=== PATIENT | male | born 1970 | race Caucasian/White ===

== ENCOUNTER 2019-06-14 11:11 | Day surgery (SDC) | payer MEDICAID ==
[2019-06-14] VITALS (13 sets, daily range): BP systolic 116–146; BP diastolic 77–91
[~2019-06-14] VITALS: Ht 182.9 cm; Wt 77.8 kg
[~2019-06-14 11:11] MED LIST: Cefazolin 2GM/100ML NS IVPB 100 ML IV ONE; IBUP-1984 PO; MESSAGE TO NURSING IV NR; famotidine 20mg tablet PO ONE; ringers solution, lacted 1,000 ML IV SCH
[2019-06-14] MEDS ORDERED: BUPIVAcaine/PF 2.5 mg/ml (0.25%) 30ml vial ONE (11:34)
[2019-06-14] MEDS ORDERED: BUPIVACAINE liposomal/PF 13.3 MG/ML vial IM ONE (11:35)
[2019-06-14] MEDS ORDERED: NO HOME MEDS PO (11:39)
[2019-06-14] MEDS ORDERED: clindamycin 600mg/D5W 50ml 50 ML IV ONE (11:40)
[2019-06-14 12:05] LABS: ISTAT IONIZED CALCIUM 1.15 mmol/L (1.03-1.32)
[2019-06-14] MEDS ORDERED: ringers solution, lacted 1,000 ML IV SCH (12:11)
[2019-06-14] MEDS ORDERED: morphine 4 MG/ML inj SYRINge IV PRN ×2 (12:15)
[2019-06-14] MEDS ORDERED: proCHLORperazine 10 MG/2 ml inj IV PRN (12:15)
[2019-06-14] MEDS ORDERED: ondansetron/PF 4mg/2ml inj IV PRN (12:15)
[2019-06-14] MEDS ORDERED: meperidine/PF 25mg/ml syringe IV PRN ×2 (12:15)
[2019-06-14] MEDS ORDERED: fentaNYL /PF 50mcg/ml 5ml ampule ONE (12:20)
[2019-06-14] MEDS ORDERED: midazolam 2 mg/2 ml injection ONE (12:20)
[2019-06-14] MEDS ORDERED: ondansetron/PF 4mg/2ml inj ONE ×2 (12:27→13:00)
[2019-06-14] MEDS ORDERED: dexamethasone sod phosphate 4mg/ml inj. ONE (12:27)
[2019-06-14] MEDS ORDERED: LIDOcaine 2% (20mg/ml) 5ml vial ONE (12:27)
[2019-06-14] MEDS ORDERED: propofol inj 20 ML IV ONE (12:27)
[2019-06-14] MEDS ORDERED: clindamycin phosphate 150mg/ml inj. ONE (12:29)
--- NOTE | 2019-06-14 13:18 | NUR ---
Received from OR via , accompanied by Anesthesiologist LENA and report given by Anesthesiolgist. ASLEEP LMA IN PLACE RESP DEEP. NO CO PAIN, DSG DI, ABD SOFT.
--- NOTE | 2019-06-14 13:28 | NUR ---
MORE AWAKE LMA REMOVED BY DR PAREDES, SPONT DEEP RESP.
[2019-06-14] MEDS ORDERED: HYDROcodone/acetaminophen 10/325mg tab PO ONE (14:20)
[2019-06-14] MEDS: meperidine/PF 25mg/ml syringe IV PRN ×2 (14:29→14:51)
--- NOTE | 2019-06-14 15:28 | NUR ---
AWAKE VS WNL, ABD SOFT DSG DI, PAIN DECREASED AFTER MEDS. DISCH INST AND PAIN MED SCRIPT GIVEN TO PT AND MOTHER AND UNDERSTOOD. VOIDED QS CLEAR URINE. HOME WITH GIRLFRIEND.
== END 2019-06-14 15:28 | disposition home or self-care (01) ==
LOC: PAS 11:11
PROVIDERS: ATTEND Surgery
DX: K40.90 Unilateral inguinal hernia, without obstruction or gangrene, not specified as recurrent (principal); Z87.891 Personal history of nicotine dependence; Z88.0 Allergy status to penicillin; Z86.14 Personal history of Methicillin resistant Staphylococcus aureus infection; Z79.899 Other long term (current) drug therapy
CPT/HCPCS: 49505; 80047; 93005; C1781; C9290; J1100; J2001; J2175; J2250; J2405; J2704; J3010; J3490; A4215; A4618; A6449; A7000; J0690; J7120

== ENCOUNTER 2023-10-05 20:34 | Emergency (ER) | payer MEDICAID ==
[~2023-10-05] VITALS: Ht 182.9 cm; Wt 77.4 kg
[~2023-10-05 20:34] MED LIST changes: -Cefazolin 2GM/100ML NS IVPB 100 ML IV ONE; -IBUP-1984 PO; -MESSAGE TO NURSING IV NR; +NO HOME MEDS PO; -famotidine 20mg tablet PO ONE; -ringers solution, lacted 1,000 ML IV SCH
[2023-10-05 20:37] VITALS: BP 108/64; PULSE 107; TEMP 98.1; O2SAT 95
[2023-10-05 21:08] VITALS: RESP 18
[2023-10-05] MEDS ORDERED: CefTRIAXone 1000mg IM Kit (w/lidocaine diluent) IM ONE (21:15)
[2023-10-05] MEDS ORDERED: IBUP-1985 PO (21:27)
[2023-10-05] MEDS ORDERED: AZIT250T83 PO (21:27)
[2023-10-05] MEDS: ibuprofen tablet 400 MG TABLET PO ONE (21:27)
[2023-10-05] MEDS ORDERED: LOPE2CAP PO (21:27)
[2023-10-05] MEDS: azithromycin 250mg tablet PO ONE (21:27)
[2023-10-05] MEDS: loperamide 2mg capsule PO ONE (21:27)
[2023-10-06] MEDS ORDERED: BUPR1FIL17 SL (11:30)
== END 2023-10-05 21:40 | disposition home or self-care (01) ==
LOC: ER 20:35
DX: J18.9 Pneumonia, unspecified organism (principal); R19.7 Diarrhea, unspecified; R53.1 Weakness; R11.0 Nausea; F10.90 Alcohol use, unspecified, uncomplicated; Z20.822 Contact with and (suspected) exposure to COVID-19; Z88.8 Allergy status to other drugs, medicaments and biological substances; Z79.899 Other long term (current) drug therapy; Z88.0 Allergy status to penicillin
CPT/HCPCS: 36415; 71045; 87502; 87503; 87811; 99284

== ENCOUNTER 2023-10-06 10:58 | Emergency (ER) | payer MEDICAID ==
[~2023-10-06] VITALS: Ht 182.9 cm; Wt 77.3 kg
[~2023-10-06 10:58] MED LIST changes: +AZIT250T83 PO; +IBUP-1985 PO; +LOPE2CAP PO
[2023-10-06 11:14] VITALS: BP 93/62; PULSE 83; RESP 18; TEMP 98; O2SAT 98
[2023-10-06] MEDS: cloNIDine 0.1 mg tablet PO ONE (11:20)
[2023-10-06] MEDS ORDERED: BUPR1FIL17 SL (11:30)
[2023-10-06] MEDS: dicyclomine 10 MG capsule PO ONE (12:02)
[2023-10-06] MEDS: ondansetron 4mg rapidly disintigrating tab PO ONE (12:05)
== END 2023-10-06 12:15 | disposition home or self-care (01) ==
LOC: ER 10:59
DX: F11.93 Opioid use, unspecified with withdrawal (principal); Z88.1 Allergy status to other antibiotic agents; Z88.0 Allergy status to penicillin; Z79.2 Long term (current) use of antibiotics; Z79.1 Long term (current) use of non-steroidal anti-inflammatories (NSAID); Z79.899 Other long term (current) drug therapy
CPT/HCPCS: 99283

== ENCOUNTER 2023-11-17 12:21 | Outpatient (CLI) | payer MEDICAID ==
[~2023-11-17 12:21] MED LIST changes: -AZIT250T83 PO
== END 2023-11-17 23:59 | disposition home or self-care (01) ==
LOC: RAD 12:21
PROVIDERS: ATTEND Physician Assistant
DX: F11.20 Opioid dependence, uncomplicated (principal)
CPT/HCPCS: 93005

== ENCOUNTER 2024-02-04 07:41 | Day surgery (SDC) | payer MEDICAID ==
[~2024-02-04] VITALS: Ht 182.9 cm; Wt 87.3 kg
[~2024-02-04 07:41] MED LIST changes: +DOL10T PO; -LOPE2CAP PO; +NICO-669 SL; -NO HOME MEDS PO
[2024-02-04 08:02] VITALS: BP 139/91; PULSE 68; RESP 16; TEMP 97.9
[2024-02-04] MEDS ORDERED: fentaNYL/PF 50MCG/1 ML 2ML syringe ONE (09:36)
[2024-02-04] MEDS ORDERED: MIDAZolam 1 MG/ML 5ML VIAL ONE (09:36)
[2024-02-04] MEDS ORDERED: diphenhydrAMINE 50 mg/ml inj ONE (09:37)
[2024-02-04 10:20] VITALS: BP 111/67; PULSE 61; RESP 13; O2SAT 100
[2024-02-04 10:30] VITALS: BP 117/77; PULSE 61; RESP 13; O2SAT 98
[2024-02-04 10:40] VITALS: BP 125/91; PULSE 61; RESP 17; O2SAT 99
[2024-02-04 10:50] VITALS: BP 126/79; PULSE 60; RESP 17; O2SAT 99
== END 2024-02-04 11:09 | disposition home or self-care (01) ==
LOC: GI LAB 07:41
PROVIDERS: ATTEND Internal Medicine Gastroenterology
DX: R19.5 Other fecal abnormalities (principal); D12.5 Benign neoplasm of sigmoid colon
CPT/HCPCS: 45385; 99152; 99153; J1200; J2250; J3010; J7030; Z7512; A4620; C1889

== ENCOUNTER 2024-08-22 13:26 | Outpatient (CLI) | payer MEDICAID | END 2024-08-22 23:59 | disposition home or self-care (01) | LOC: RAD 13:26 | PROVIDERS: ATTEND Physician Assistant | DX: F11.20 Opioid dependence, uncomplicated (principal) | CPT/HCPCS: 93005 ==